=== PATIENT | male | born 1975 | race Caucasian/White ===

== ENCOUNTER → 2020-05-10 | Outpatient (CLI) | payer BC ==
--- NOTE | 2020-05-10 10:49 | RADIOLOGY REPORT (SQ) ---
EXAM DESCRIPTION: U/S SCROTUM W/O DOPPLER IMAGES COMPLETED DATE/TIME: 05/10/2020 9:53 am REASON FOR STUDY: N50.89 OTHER SPECIFIED DISORDERS OF THE MALE GENITAL ORGANS N50.89 OTHER SPECIFIE D DISORDERS OF THE MALE GENITAL ORGANS COMPARISON: None. TECHNIQUE: Static and realtime lopez scale imaging of the scrotum and testes. Selected color Doppler and spectral images recorded to document blood flow. LIMITATIONS: None. FINDINGS: RIGHT: TESTICLE: Normal size measuring 3.6 x 2.6 x 2.1 cm. Normal echotexture. Normal blood flow. No mass. Punctate calcification measuring 2 mm. EPIDIDYMIS: Measuring 9 x 8 x 12 mm. Cyst within the epididymal head measuring 2 mm. HYDROCELE OR VARICOCELE: Small hydrocele. No varicocele. HERNIA OR EXTRA-TESTICULAR MASS: No. OTHER: No other significant finding. LEFT: TESTICLE: Normal size measuring 3.3 x 2.8 x 1.7 cm. Normal echotexture. Normal blood flow. No mass. EPIDIDYMIS: Measuring 13 x 10 x 9 mm. Cyst measuring 4 mm present. HYDROCELE OR VARICOCELE: Small hydrocele. No varicocele. HERNIA OR EXTRA-TESTICULAR MASS: No. OTHER: No other significant finding. IMPRESSION: 1. Unremarkable testicular parenchyma bilaterally aside from a punctate calcification w ithin the right testes. 2. Small bilateral epididymal cysts, largest measuring 4 mm. 3. Small hydroceles. TECHNICAL DOCUMENTATION: JOB ID: [id number] 2010 [employer]- All Rights Reserved Reading location - IP/workstation name: [email or web address]
== END ==
LOC: RAD 08:54
PROVIDERS: ATTEND Nurse Practitioner Family
DX: N50.3 Cyst of epididymis (principal); N43.3 Hydrocele, unspecified
CPT/HCPCS: 76870